=== PATIENT | female | born 1985 | race Hispanic/Latino ===

== ENCOUNTER 2021-04-14 07:59 | Outpatient (CLI) | payer OTHER ==
[2021-04-14 20:26] LABS: SARS-CoV-2 PCR by NAA Not Detected (NotDetected)
== END 2021-04-14 08:00 | disposition home or self-care (01) ==
LOC: CSHLAB 07:59
PROVIDERS: ATTEND Student in an Organized Health Care Education/Training Program
DX: Z01.812 Encounter for preprocedural laboratory examination (principal); Z20.822 Contact with and (suspected) exposure to COVID-19
CPT/HCPCS: U0003; U0005

== ENCOUNTER 2021-04-17 10:02 | Inpatient (IN) | payer MEDICAID, OTHER, SELFPAY ==
[2021-04-17 10:30] VITALS: BMI 28.6
[2021-04-17] MEDS ORDERED: CEFAZOLIN 2 GM in Premix Bag 1 BAG IVPB SCH (10:31)
[2021-04-17] MEDS ORDERED: Lactated Ringer's 1,000 ML IV SCH (10:31)
[2021-04-17] MEDS ORDERED: hydrALAZINE 20 MG/ML VIAL SLOW IVP PRN ×2 (10:31→15:18)
[2021-04-17] MEDS ORDERED: Famotidine/PF 20 mg/2ml Vial SLOW IVP PRN (10:31)
[2021-04-17] MEDS ORDERED: Ondansetron PF 4 MG/2 ML Vial IVP PRN ×3 (10:31→15:18)
[2021-04-17] MEDS ORDERED: Promethazine HCl 25 MG/ML VIAL IM PRN ×3 (10:31→15:18)
[2021-04-17] MEDS ORDERED: Bicitra 30 ML UDCUP PO PRN (10:31)
[2021-04-17 11:17] LABS: Hemoglobin 13.3 g/dL (12.0-15.5); Mean Corpuscular HGB CONC 32.4 g/dL (32.0-36.0); Mean Corpuscular Hemoglobin 29.2 pg (27.0-33.0); Mean Corpuscular Volume 89.9 fl (81.6-98.3); Mean Platelet Volume 9.4 fl (7.4-10.4); Platelet Count 311 10x3/uL (150-450); RBC Distribution Width 15.8 % (11.5-14.5); Red Blood Cell (RBC) Count 4.56 10x6/uL (3.90-5.03); White Blood Cell (WBC) Count 9.8 10x3/uL (3.5-10.5)
[2021-04-17 11:48] LABS: Hep B Surf Ag Non-Reactive S/CO (NonReactive)
[2021-04-17 11:50] LABS: Syphilis Antibody Nonreactive (Nonreactive); Syphilis Antibody Index 0.05 S/CO (<1.00 Non-Reactive)
[2021-04-17 11:54] LABS: HBSAg Index 0.15 S/CO (0-0.99)
[2021-04-17] MEDS ORDERED: Morphine PF 10 MG/10 ML VIAL ONE (12:06)
[2021-04-17] MEDS ORDERED: Phenylephrine 40 MG/NS 250 ML 250 ML ONE (12:07)
[2021-04-17] MEDS ORDERED: Dexamethasone 4 mg/ml Vial ONE (12:07)
[2021-04-17] MEDS ORDERED: Oxytocin 10 UNITS/ML VIAL ONE (12:07)
[2021-04-17] MEDS ORDERED: Ondansetron PF 4 MG/2 ML Vial ONE (12:07)
[2021-04-17] MEDS ORDERED: Ketorolac Tromethamine 30 MG/ML VIAL ONE (12:07)
[2021-04-17] MEDS ORDERED: Ondansetron HCl/PF 4 MG/2 ML Vial IVP PRN (13:08)
[2021-04-17] MEDS ORDERED: Meperidine HCl/PF 25 MG/ML VIAL SLOW IVP PRN (13:08)
[2021-04-17] MEDS ORDERED: Naloxone HCl 0.4 mg/ml Vial IV PRN (13:08)
[2021-04-17] MEDS ORDERED: Promethazine HCl 25 MG SUPP PR PRN (13:08)
[2021-04-17] MEDS ORDERED: Ketorolac Tromethamine 30 MG/ML VIAL IVP PRN (13:08)
[2021-04-17] MEDS ORDERED: diphenhydrAMINE 50 MG/ML VIAL IVP PRN (13:08)
[2021-04-17] MEDS ORDERED: Hydrocerin (Eucerin) Cream 120 gm Jar TOP PRN (13:08)
[2021-04-17] MEDS ORDERED: Naloxone HCl 0.4 mg/ml Vial IVP PRN ×2 (13:08)
[2021-04-17] MEDS ORDERED: Fentanyl 100 MCG/2 ML VIAL SLOW IVP PRN (13:08)
[2021-04-17] MEDS ORDERED: Communication Order-Pharmacy FS SCH (13:15)
[2021-04-17] MEDS ORDERED: Ketorolac Tromethamine 30 MG/ML VIAL IVP SCH (13:15)
[2021-04-17] MEDS ORDERED: Fentanyl 100 MCG/2 ML VIAL ONE (15:15)
[2021-04-17] MEDS ORDERED: Lanolin Ointment 7 GM TUBE TOP PRN (15:18)
[2021-04-17] MEDS ORDERED: Simethicone Chewable 80 MG TAB PO PRN (15:18)
[2021-04-17] MEDS ORDERED: diphenhydrAMINE 25 MG CAP PO PRN (15:18)
[2021-04-17] MEDS ORDERED: Bisacodyl 10 MG SUPP PR PRN (15:18)
[2021-04-17] MEDS ORDERED: Boostrix 0.5 ML (Tdap) VIAL IM ONE (15:18)
[2021-04-17] MEDS ORDERED: Acetaminophen 325 MG TAB PO PRN (15:18)
[2021-04-17] MEDS ORDERED: Ibuprofen 800 MG TAB PO SCH ×2 (15:45→22:00)
[2021-04-17] MEDS: Docusate Calcium (SURFAK) 240 MG CAP PO SCH (19:15)
[2021-04-17] MEDS: Ferrous Sulfate 325 MG TAB PO SCH (19:15)
[2021-04-17] MEDS: Ketorolac Tromethamine 30 MG/ML VIAL IVP PRN (19:54)
[2021-04-18] MEDS ORDERED: Zolpidem Tartrate 5 MG TAB PO PRN (01:30)
[2021-04-18] MEDS: Ketorolac Tromethamine 30 MG/ML VIAL IVP PRN (05:25)
[2021-04-18] MEDS: HYDROcodone/Acetaminophen 5/325 mg Tablet PO PRN ×4 (05:26→21:39)
[2021-04-18 06:15] LABS: Hemoglobin 11.1 g/dL (12.0-15.5); Mean Corpuscular HGB CONC 33.4 g/dL (32.0-36.0); Mean Corpuscular Hemoglobin 30.1 pg (27.0-33.0); Mean Platelet Volume 9.5 fl (7.4-10.4); Platelet Count 260 10x3/uL (150-450); RBC Distribution Width 15.8 % (11.5-14.5); Red Blood Cell (RBC) Count 3.69 10x6/uL (3.90-5.03); White Blood Cell (WBC) Count 12.4 10x3/uL (3.5-10.5)
[2021-04-18] MEDS: Docusate Calcium (SURFAK) 240 MG CAP PO SCH ×2 (08:32→21:39)
[2021-04-18] MEDS: Prenatal Vitamin 1 TAB PO SCH (08:32)
[2021-04-18] MEDS: Ferrous Sulfate 325 MG TAB PO SCH ×2 (08:35→20:13)
[2021-04-19] MEDS: HYDROcodone/Acetaminophen 5/325 mg Tablet PO PRN ×2 (01:29→05:13)
[2021-04-19 07:50] VITALS: BP 111/59; TEMP 98.3
[2021-04-19] MEDS ORDERED: Ibuprofen 800 MG TAB PO PRN (08:08)
[2021-04-19] MEDS: Ferrous Sulfate 325 MG TAB PO SCH (08:34)
[2021-04-19] MEDS: Prenatal Vitamin 1 TAB PO SCH (08:42)
[2021-04-19] MEDS: Docusate Calcium (SURFAK) 240 MG CAP PO SCH (08:42)
== END 2021-04-19 12:13 | disposition home or self-care (01) | DRG 788 ==
LOC: CSHLD 10:02 → CSHPP 15:30
PROVIDERS: ADMIT Student in an Organized Health Care Education/Training Program; ATTEND Student in an Organized Health Care Education/Training Program
PROC: 10D00Z1 Extraction of Products of Conception, Low, Open Approach (ICD-10-PCS; principal; 2021-04-18)
DX: O34.211 Maternal care for low transverse scar from previous cesarean delivery (principal); Z3A.39 39 weeks gestation of pregnancy; Z37.0 Single live birth
CPT/HCPCS: 36415; 51702; 85027; 86780; 86850; 86900; 86901; 87340; J1100; J1885; J2274; J2405; J2590; J3010